=== PATIENT | male | born 1975 | race Caucasian/White ===

== ENCOUNTER 2017-05-26 11:54 | Emergency (ER) | payer MEDICAID ==
[~2017-05-26] VITALS: Ht 167.6 cm; Wt 72.6 kg
[2017-05-26 12:00] VITALS: BP 126/54
== END 2017-05-26 16:02 | disposition left against medical advice (07) ==
LOC: ER 11:54
DX: M25.511 Pain in right shoulder (principal); Z53.21 Procedure and treatment not carried out due to patient leaving prior to being seen by health care provider
CPT/HCPCS: 73030

== ENCOUNTER 2017-05-27 07:56 | Emergency (ER) | payer MEDICAID ==
[~2017-05-27] VITALS: Ht 167.6 cm; Wt 72.6 kg
[2017-05-27 08:27] VITALS: BP 121/76
[2017-05-27] MEDS ORDERED: KETOROLAC TROMETH 60MG/2ML VIAL IM ONE (08:45)
== END 2017-05-27 09:09 | disposition home or self-care (01) ==
LOC: ER 07:56
DX: S46.911A Strain of unspecified muscle, fascia and tendon at shoulder and upper arm level, right arm, initial encounter (principal); X58.XXXA Exposure to other specified factors, initial encounter; Y93.89 Activity, other specified; Y92.89 Other specified places as the place of occurrence of the external cause; Y99.8 Other external cause status